=== PATIENT | female | born 1940 | race Caucasian/White ===

== ENCOUNTER 2023-08-25 17:32 | Emergency (ER) | payer MEDICARE, OTHER, SELFPAY ==
[2023-08-25 17:34] VITALS: BP 119/90
--- NOTE | 2023-08-25 18:20 | ED.GENMED ---
History of Present Illness
General
Chief Complaint: Breathing Problem
Source: patient and family
Exam Limitations: none
Time Seen by Provider: 08/25/23 18:18
Nursing documentation reviewed up to this point in time: agreed with
History of Present Illness
History of Present Illness:
83-year-old female presents emergency room complaining of shortness of breath ongoing for 3 months, worse over the past several days.
Past History
Past History
ED Past Medical History: Asthma, CAD, GERD, HTN, Hypothyroidism and Other (Arthritis)
ED Past Surgical History: Cholecystectomy and Orthopedic
Social History
Tobacco: Former smoker
Personal:
Living: with family
Family History
Family History: CAD
Review of Systems
Review of Systems
Allergies reviewed?: Yes
All Other Systems: Not applicable
Constitutional: Reports no symptoms
EENT: Reports no symptoms
Respiratory: Reports cough and trouble breathing
Cardiac: Reports no symptoms
ABD/GI: Reports no symptoms
: Reports no symptoms
Musculoskeletal: Reports no symptoms
Skin: Reports no symptoms
Neurological: Reports no symptoms
Endocrine: Reports no symptoms
Hematologic/Lymphatic: Reports no symptoms
Psychiatric: Reports no symptoms
Phy Exam
Physical Exam
Physical Exam:
Physical Exam
General: no apparent distress, not acutely ill
Neck: supple. no meningeal signs. normal posterior pharynx
Heart: s1/s2 regular rate and rhythm, no murmur. equal radial
pulses.
HEENT: Pupils equal round reactive to light, EOMI
Lungs: no acute respiratory distress. Decreased breath sounds bilaterally
Abdomen: normal bowel sounds. not tender. no CVAT
Neuro: alert and oriented. no focal neurological deficits cranial nerves II through XII intact
Skin: no rash
Psychiatric: well kept. interactive and cooperative
Extremities: no edema. no calf tenderness. negative homans. good distal pulses
Scores
Heart Failure Risk
Heart Failure Risk Score: Not Applicable
Course
Orders/Labs/Results
Orders:
Orders
08/25/23 17:38
ECG [Electrocardiogram (*1)] Urgent
Reason for Study: Bradycardia / Tachycardia
EKG- Treatment ONCE
08/25/23 18:08
Cardiac Monitoring- Treatment ONCE
IV Insert/Care/Rem.- Treatment PRN
CR Chest - 2 Views Urgent
Comment:
Reason For Exam: respiratory distress
O2 Therapy [RESP] Urgent
Titrate/Wean O2 to maintain O2 sat greater than (%): 93
Special Instructions: TO MAINTAIN CONTINUOUS O2 SATS >/= 93%
Pulse Ox/cont/shift [RESP] Urgent
Quantity: 1
Special Instructions: continuous pulse ox
08/25/23 18:16
Complete Blood Count/With Diff Urgent
Comprehensive Metabolic Panel Urgent
NT-proBNP Urgent
Troponin I Urgent
08/25/23 19:09
Ipratropium/Albuterol Sulfate [Duoneb] 3 ml INH R NOW STA
08/25/23 21:42
Dexamethasone Sod Phosphate [Decadron] 10 mg IV NOW STA
Ipratropium/Albuterol Sulfate [Duoneb] 3 ml INH R NOW STA
Abnormal Lab Results
08/25/23
18:16
RBC 4.02 L 10^6/uL
(4.20-5.40)
Hgb 11.4 L g/dL
(12.0-16.0)
Hct 34.1 L %
(37.0-47.0)
MPV 11.3 H fL
(7.4-10.4)
BUN 27 H mg/dl
(7-17)
Creatinine 1.1 H mg/dL
(0.6-1.0)
AST 52 H U/L
(14-36)
ALT 46 H U/L
(0-35)
08/25/23 18:16
08/25/23 18:16
Vital Signs
Initial and Last Documented VS:
Initial Vital Signs
Temp Pulse Resp BP Pulse Ox
97.6 F 45 24 119/90 93
08/25/23 17:34 08/25/23 17:34 08/25/23 17:34 08/25/23 17:34 08/25/23 17:34
Last Documented Vital Signs
Temp Pulse Resp BP Pulse Ox
97.6 F 65 13 155/89 96
08/25/23 17:34 08/25/23 21:45 08/25/23 21:45 08/25/23 20:00 08/25/23 21:45
MDM/Problems Addressed
Differential Diagnosis Includes:
Pneumonia, asthma exacerbation, CHF
MDM/Problems Addressed:
83-year-old female with asthma exacerbation. Do not suspect PE or pneumonia. Improved after DuoNeb's and Decadron. Discharged to follow-up with pulmonology. Return precautions given.
Chronic conditions affecting care: Asthma and Cancer
Acute Exacerbation and/or Progression of Chronic Illness: Asthma and Cancer
*Radiology
Radiology exam reviewed: preliminary read by ED provider (Chest x-ray no acute findings)
*Pulse Oximetry
Patient hypoxic: no
*EKG
Interpreted by ED Provider?: Yes
EKG Intrepretation Date: 08/25/23
EKG Intrepretation Time: 17:42
Interpretation: abnormal
Comparison EKG: changes noted
Heart Rate: 62
Rate: normal
Rhythm: sinus, PAC's and PVC's
[place]: normal axis
Interval: normal interval
QRS Pattern: normal QRS
Ischemia: non-specific ST changes
*Airplane Designer Interpretation
Rate: normal
Interpretation: abnormal
Heart Rate: 60
Rhythm: sinus and PVC's
*Critical Care Note
Total Time (30-74mins, 75-104mins- exclusive of procedures): Not Applicable
Data Reviewed
Further Testing Considered But Not Given:
ct chest not indicated
Patient Management
Social determinants of health affecting care: Living situation
Escalation/DeEscalation of care consider admission/obs:
admit not indicated
ED Attending Note
-
Portions of this chart may have been created with voice recognition software.� Occasional wrong word or��sound alike� substitutions may have occurred due to the inherent limitations of voice recognition software.
Discharge Plan
Departure
Patient Disposition: Home (Routine Discharge)
Date of Disposition: 08/25/23
Time of Disposition: 22:36
Patient with high blood pressure during this ER visit?: Yes
Condition: Good
Discharge Problem:
Asthma exacerbation
Instructions: Asthma, Adult (DC), BLOOD PRESSURE
Prescriptions:
New
prednisone 50 mg tablet
50 mg PO DAILY Qty: 5 0RF
No Action
amlodipine 5 MG tablet
5 mg PO DAILY Qty: 1 0RF
Rx Instructions:
hold sbp <135
Albuterol Sulfate Hfa
1 puff inhalation PRN PRN (Reason: SOB)
levothyroxine 112 MCG tablet
112 mcg PO DAILY
carvedilol [Coreg] 25 MG tablet
25 mg PO BID
Saccharomyces boulardii 250 MG capsule
250 mg PO DAILY
quinapril [Accupril] 20 MG tablet
20 mg PO DAILY
nabumetone 500 MG tablet
500 mg PO BID
hydrochlorothiazide 12.5 MG tablet
12.5 mg PO DAILY
evolocumab [Repatha Syringe] 140 MG/ML syringe
140 mg SQ [id number]
mupirocin 1 APPLIC ointment
1 applic topical BID Qty: 1 0RF
Patient Comments:
last dose 12/27 bid since monday 12/25
sennosides [senna] 1 TABLET tablet
2 tab PO BID 0RF
aspirin 325 MG tablet
325 mg PO DAILY 0RF
magnesium hydroxide 30 ML suspension
30 ml PO DAILYPRN PRN (Reason: constipation) 0RF
docusate sodium 100 MG capsule
100 mg PO BID 0RF
tramadol 50 MG tablet
50 mg PO Q6HPRN PRN (Reason: moderate-severe pain) Qty: 30 0RF
Rx Instructions:
Dx joint replacement
ongoing therapy
acetaminophen [Tylenol Extra Strength] 500 MG tablet
1,000 mg PO QID Qty: 0 0RF
Referrals:
Cori Chua DO [Family Provider] -
Interventions
Interventions:
ED- Cardiac Assessment Last Done: 08/25/23 18:45
ED- Pulmonary Assessment Last Done: 08/25/23 18:45
Discharge Date and Time
Print Language: GEORGIAN
[2023-08-25 18:32] LABS: % Eosinophils 3.5 % (0-6); % Immature Granulocytes 0.2 % (0-0.5); % Lymphocytes 23.6 % (20.5-51.1); % Monocytes 6.9 % (1.7-9.3); % Neutrophils 64.8 % (42.2-75.2); Absolute Basophils 0.1 10^3/uL (0-0.2); Absolute Eosinophils 0.2 10^3/uL (0-0.7); Absolute Lymphocytes 1.5 10^3/uL (1.2-3.4); Absolute Monocytes 0.4 10^3/uL (0.1-0.6); Absolute Neutrophils 4.1 10^3/uL (1.4-6.5); Hematocrit 34.1 % (37.0-47.0); Hemoglobin 11.4 g/dL (12.0-16.0); Mean Corp Hgb Conc. 33.4 g/dL (33.0-37.0); Mean Corpuscular Hgb 28.4 pg (27.0-31.0); Mean Corpuscular Volume 84.8 fL (81.0-99.0); Mean Platelet Volume 11.3 fL (7.4-10.4); Nucleated Red Blood Cells % 0 %; Platelet Count 167 10^3/uL (130-400); Red Blood Cell Count 4.02 10^6/uL (4.20-5.40); Red Cell Dist. Width 13.4 % (11.5-14.5); White Blood Cell Count 6.3 10^3/uL (4.8-10.8)
[2023-08-25 18:45] VITALS: BP 156/71
[2023-08-25 18:49] LABS: ALT (SGPT) 46 U/L (0-35); AST (SGOT) 52 U/L (14-36); Albumin 3.8 g/dl (3.5-5.0); Alkaline Phosphatase 61 U/L (38-126); Blood Urea Nitrogen 27 mg/dl (7-17); Calcium 9.3 mg/dl (8.4-10.2); Carbon Dioxide 28 mmol/L (22-30); Chloride 100 mmol/L (98-107); Glucose 94 mg/dl (70-99); Potassium 4.2 mmol/L (3.5-5.1); Sodium 136 mmol/L (135-145); Total Bilirubin 0.5 mg/dl (0.2-1.3); Total Protein 6.3 g/dl (6.3-8.2); eGFR 50.48
[2023-08-25 18:55] LABS: NT-proBNP 1850 pg/ml; Troponin I < 0.012 ng/ml
[2023-08-25 19:00] VITALS: BP 147/61
[2023-08-25] MEDS: DUONEB 3 ML INH ×2 (19:27→21:56)
[2023-08-25 20:00] VITALS: BP 155/89
[2023-08-25] MEDS: DECADRON 10 MG IV (21:56)
== END 2023-08-25 23:06 | disposition home or self-care (01) ==
LOC: EMR 17:32
PROVIDERS: EMERGENCY PHYSICIAN Emergency Medicine; FAMILY PHYSICIAN Family Medicine
DX: J45.901 Unspecified asthma with (acute) exacerbation (principal); I10 Essential (primary) hypertension; Z87.891 Personal history of nicotine dependence
CPT/HCPCS: 99285; 96374; 94640; 71046; 80053; 83880; 84484; 85025; 93005

== ENCOUNTER → 2023-09-10 11:07 | Outpatient (REF) | payer MEDICARE, OTHER, SELFPAY ==
[2023-09-10 15:44] LABS: ALT (SGPT) 39 U/L (0-35); AST (SGOT) 21 U/L (14-36); Albumin 3.6 g/dl (3.5-5.0); Alkaline Phosphatase 54 U/L (38-126); Blood Urea Nitrogen 30 mg/dl (7-17); Calcium 9.5 mg/dl (8.4-10.2); Carbon Dioxide 31 mmol/L (22-30); Chloride 100 mmol/L (98-107); Glucose 99 mg/dl (70-99); Potassium 4.3 mmol/L (3.5-5.1); Sodium 137 mmol/L (135-145); Total Bilirubin 0.9 mg/dl (0.2-1.3); Total Protein 5.8 g/dl (6.3-8.2); eGFR 45.48
== END ==
LOC: HWRAD 11:07
PROVIDERS: ATTENDING PHYSICIAN Hospitalist; FAMILY PHYSICIAN Family Medicine
DX: M81.0 Age-related osteoporosis without current pathological fracture (principal); M15.9 Polyosteoarthritis, unspecified
CPT/HCPCS: 36415; 77080; 77081; 80053

== ENCOUNTER 2023-10-03 14:50 | Inpatient (IN) | payer MEDICARE, OTHER, SELFPAY ==
[2023-10-03] VITALS (10 sets, daily range): BP systolic 151–193; BP diastolic 67–109; BMI 36.2; BMI 35.4
[2023-10-03 10:12] LABS: % Basophils 0.8 % (0-2); % Eosinophils 0.4 % (0-6); % Immature Granulocytes 0.4 % (0-0.5); % Lymphocytes 22.1 % (20.5-51.1); % Monocytes 7.9 % (1.7-9.3); % Neutrophils 68.4 % (42.2-75.2); Absolute Basophils 0.1 10^3/uL (0-0.2); Absolute Lymphocytes 1.6 10^3/uL (1.2-3.4); Absolute Monocytes 0.6 10^3/uL (0.1-0.6); Absolute Neutrophils 5.1 10^3/uL (1.4-6.5); Hematocrit 36.3 % (37.0-47.0); Hemoglobin 12.1 g/dL (12.0-16.0); Mean Corp Hgb Conc. 33.3 g/dL (33.0-37.0); Mean Corpuscular Hgb 27.7 pg (27.0-31.0); Mean Corpuscular Volume 83.1 fL (81.0-99.0); Mean Platelet Volume 10.6 fL (7.4-10.4); Nucleated Red Blood Cells % 0 %; Platelet Count 171 10^3/uL (130-400); Red Blood Cell Count 4.37 10^6/uL (4.20-5.40); Red Cell Dist. Width 14.6 % (11.5-14.5); White Blood Cell Count 7.4 10^3/uL (4.8-10.8)
[2023-10-03 10:23] LABS: INR 1.37
[2023-10-03 10:24] LABS: APTT 41.2 Sec (23.4-35.0)
[2023-10-03 10:28] LABS: ALT (SGPT) 18 U/L (0-35); AST (SGOT) 18 U/L (14-36); Alkaline Phosphatase 61 U/L (38-126); Blood Urea Nitrogen 32 mg/dl (7-17); Calcium 9.5 mg/dl (8.4-10.2); Carbon Dioxide 26 mmol/L (22-30); Chloride 104 mmol/L (98-107); Estimated Creatinine Clearance 41 ml/min; Glucose 117 mg/dl (70-99); Potassium 4.3 mmol/L (3.5-5.1); Sodium 137 mmol/L (135-145); Total Bilirubin 0.7 mg/dl (0.2-1.3); Total Protein 6.1 g/dl (6.3-8.2); eGFR 45.48
--- NOTE | 2023-10-03 10:29 | ED.GENMED ---
History of Present Illness
<Anny Mcdonough PA-C - Last Filed: 10/03/23 18:17>
General
Chief Complaint: Rectal Bleeding
Source: patient
Exam Limitations: none
Time Seen by Provider: 10/03/23 10:26
Nursing documentation reviewed up to this point in time: agreed with
History of Present Illness
History of Present Illness:
Patient is an 83-year-old female with history atrial fibrillation on Eliquis, lung CA s/p resection, hypertension, hyperlipidemia presenting to the emergency department via EMS with concerns of rectal bleeding. Patient states that this morning when
she woke up around 730 she had the feeling that she had to have a bowel movement. She went to the bathroom and felt like she was having some diarrhea. When she looked in the toilet bowl it was all bright red blood. She had a repeat episode about
5 minutes after the initial episode. Patient denies any associated rectal pain, abdominal pain, nausea, or vomiting. Patient denies any fevers, chills, chest pain, shortness of breath, dizziness/lightheadedness. Patient denies any hematuria,
abnormal vaginal bleeding.
Patient reports that she did have a normal bowel movement yesterday morning
Patient has been on Eliquis for atrial fibrillation that she takes twice a day. She did take her dose last night but held her dose this morning.
Patient states that she has had a few colonoscopies in the past�most recent being about 5 years ago. No history of any abnormal colonoscopies.
Past History
<Anny Mcdonough PA-C - Last Filed: 10/03/23 18:17>
Past History
ED Past Medical History: Asthma, CAD, GERD, HTN, Hypothyroidism and Other (Arthritis)
ED Past Surgical History: Cholecystectomy and Orthopedic
Social History
Tobacco: Former smoker
Personal:
Living: with family
Family History
Family History: CAD
Review of Systems
<Anny Mcdonough PA-C - Last Filed: 10/03/23 18:17>
Review of Systems
Allergies reviewed?: Yes
All Other Systems: ROS reviewed and negative except as documented in HPI and ROS
Phy Exam
<Anny Mcdonough PA-C - Last Filed: 10/03/23 18:17>
Physical Exam
Physical Exam:
Vitals: Hypertensive, otherwise vital signs stable
General: Patient is well appearing, no acute distress
Skin: Warm and dry, no rashes or lesions
Head: Normocephalic, atraumatic
Eyes: Sclera nonicteric. EOMs intact. No nystagmus.
Throat: Protecting airway
Neck: Normal ROM, no cervical spine tenderness, no meningismus
Cardiac: Regular rate and rhythm, no murmurs.
Pulm: Normal respiratory effort, no wheezes, rales, rhonchi heard on exam.
Abdomen: Abdomen soft. No abdominal tenderness. No bruising. No CVA tenderness
Rectal: No stool in vault. Small amount of bright red blood. No visualized external hemorrhoids or fissures.
Extremities: No evidence of cyanosis or edema. Great distal pulses.
Neuro: AAOx3. CN II-XII intact. No focal neurologic deficits.
Psychiatric: Normal affect.
Course
<Anny Mcdonough PA-C - Last Filed: 10/03/23 18:17>
Orders/Labs/Results
Orders:
Orders
10/03/23 09:54
IV Insert/Care/Rem.- Treatment PRN
10/03/23 10:00
Type+Screen Urgent
Complete Blood Count/With Diff Urgent
Comprehensive Metabolic Panel Urgent
PTT Urgent
Prothrombin Time Urgent
10/03/23 10:53
Electrocardiogram (*1) Urgent
Reason for Study: Atrial Fibrillation
EKG- Treatment ONCE
0.9% Sodium Chloride 1000 ml [Nss] 1,000 ml IV BOLUS
10/03/23 14:13
Admit/Transfer Patient As Directed
Co-Sign Provider:
Level of Care: Inpatient admission
Assign to:: Telemetry
Physician / Group: Stanley
Diagnosis: Rectal bleeding
Reason for Telemetry: Other
Other Reason for Telemetry: Afib
Date to Stop Telemetry: 10/05/23
Time to Stop Telemetry: 11:00
Reason for Hospitalization: Above
Expected length of stay greater than two midnights?: Yes
ELOS- Estimated Length of Stay in days: 2
I certify the patient meets the requirements for IP care: Yes
PRN Pain Medication Management As Directed
May give lesser potent ordered pain med per pt: Yes
preference::
Protocol:: Medication orders for pain may be administered in a
manner that supports deferring to patient preference
when the pt is:
-Requesting an ordered lesser potent pain medication.
Least to most potent pain medications are defined as:
acetaminophen < NSAID < tramadol < opioids (morphine,
oxycodone, hydromorphone).
- Requesting a lesser dose of the same medication IF
ORDERED.
- Requesting a less intrusive route of administration
if both routes are prescribed by the provider (PO <
IV).
10/03/23 14:16
Code Status As Directed
Resuscitation Status: Full Code
10/03/23 Dinner
Clear Liquid
At Your Request: Full Participation
Does patient need a safe tray?: No
10/03/23 16:03
Acetaminophen [Tylenol] 650 mg PO Q4HPRN PRN
Albuterol Nebs [Ventolin Nebules] 2.5 mg INH R Q4HPRN PRN
Albuterol [ProAIR HFA INHALER] 2 puff INH R Q6HPRN PRN
10/03/23 16:03
GASTROINTESTINAL CONSULT Routine
Consulting Provider: Rosa Azul
Was physician already notified: Yes
Sequential Compression Device [Pneumatic Compression Sleeves] As Directed
Type: Knee high
DX Deep Vein Thrombosis Video Routine
10/03/23 16:41
Hemoglobin Q8H
10/03/23 20:00
Carvedilol [Coreg] 25 mg PO BID
cycloSPORINE [Restasis 0.05% Ophthalmic Emulsion] 1 drops BOTH EYES Q12
10/04/23 00:03
Hemoglobin Q8H
10/04/23 06:00
BMP [Basic Metabolic Panel] IN AM
CBC/With Diff [Complete Blood Count/With Diff] IN AM
Levothyroxine [Synthroid] 112 mcg PO DAILY @ 0600
10/04/23 08:00
Lisinopril [Zestril] 20 mg PO DAILY
10/04/23 08:03
Hemoglobin Q8H
10/05/23 11:00
DC Protocol for Telemetry ONCE
Abnormal Lab Results
10/03/23
10:00
Hct 36.3 L %
(37.0-47.0)
RDW 14.6 H %
(11.5-14.5)
MPV 10.6 H fL
(7.4-10.4)
PT 17.0 H Sec
(11.4-14.6)
APTT 41.2 H Sec
(23.4-35.0)
BUN 32 H mg/dl
(7-17)
Creatinine 1.2 H mg/dL
(0.6-1.0)
Glucose 117 H mg/dl
(70-99)
Total Protein 6.1 L g/dl
(6.3-8.2)
10/03/23 10:00
10/03/23 10:00
Vital Signs
Initial and Last Documented VS:
Initial Vital Signs
Temp Pulse Resp BP Pulse Ox
97.9 F 74 18 161/67 95
10/03/23 09:48 10/03/23 09:48 10/03/23 09:48 10/03/23 09:48 10/03/23 09:48
Last Documented Vital Signs
Temp Pulse Resp BP Pulse Ox
97.6 F 74 16 169/100 94
10/03/23 16:13 10/03/23 17:03 10/03/23 17:03 10/03/23 16:13 10/03/23 17:03
<Prateek Harp DO - Last Filed: 10/03/23 12:41>
Orders/Labs/Results
Orders:
Orders
10/03/23 09:54
IV Insert/Care/Rem.- Treatment PRN
10/03/23 10:00
Type+Screen Urgent
Complete Blood Count/With Diff Urgent
Comprehensive Metabolic Panel Urgent
PTT Urgent
Prothrombin Time Urgent
10/03/23 10:53
Electrocardiogram (*1) Urgent
Reason for Study: Atrial Fibrillation
EKG- Treatment ONCE
0.9% Sodium Chloride 1000 ml [Nss] 1,000 ml IV BOLUS
10/03/23 14:13
Admit/Transfer Patient As Directed
Co-Sign Provider:
Level of Care: Inpatient admission
Assign to:: Telemetry
Physician / Group: Stanley
Diagnosis: Rectal bleeding
Reason for Telemetry: Other
Other Reason for Telemetry: Afib
Date to Stop Telemetry: 10/05/23
Time to Stop Telemetry: 11:00
Reason for Hospitalization: Above
Expected length of stay greater than two midnights?: Yes
ELOS- Estimated Length of Stay in days: 2
I certify the patient meets the requirements for IP care: Yes
PRN Pain Medication Management As Directed
May give lesser potent ordered pain med per pt: Yes
preference::
Protocol:: Medication orders for pain may be administered in a
manner that supports deferring to patient preference
when the pt is:
-Requesting an ordered lesser potent pain medication.
Least to most potent pain medications are defined as:
acetaminophen < NSAID < tramadol < opioids (morphine,
oxycodone, hydromorphone).
- Requesting a lesser dose of the same medication IF
ORDERED.
- Requesting a less intrusive route of administration
if both routes are prescribed by the provider (PO <
IV).
10/03/23 14:16
Code Status As Directed
Resuscitation Status: Full Code
10/03/23 Dinner
Clear Liquid
At Your Request: Full Participation
Does patient need a safe tray?: No
10/03/23 16:03
Acetaminophen [Tylenol] 650 mg PO Q4HPRN PRN
Albuterol Nebs [Ventolin Nebules] 2.5 mg INH R Q4HPRN PRN
Albuterol [ProAIR HFA INHALER] 2 puff INH R Q6HPRN PRN
10/03/23 16:03
GASTROINTESTINAL CONSULT Routine
Consulting Provider: Rosa Azul
Was physician already notified: Yes
Sequential Compression Device [Pneumatic Compression Sleeves] As Directed
Type: Knee high
DX Deep Vein Thrombosis Video Routine
10/03/23 16:41
Hemoglobin Q8H
10/03/23 20:00
Carvedilol [Coreg] 25 mg PO BID
cycloSPORINE [Restasis 0.05% Ophthalmic Emulsion] 1 drops BOTH EYES Q12
10/04/23 00:03
Hemoglobin Q8H
10/04/23 06:00
BMP [Basic Metabolic Panel] IN AM
CBC/With Diff [Complete Blood Count/With Diff] IN AM
Levothyroxine [Synthroid] 112 mcg PO DAILY @ 0600
10/04/23 08:00
Lisinopril [Zestril] 20 mg PO DAILY
10/04/23 08:03
Hemoglobin Q8H
10/05/23 11:00
DC Protocol for Telemetry ONCE
Abnormal Lab Results
10/03/23
10:00
Hct 36.3 L %
(37.0-47.0)
RDW 14.6 H %
(11.5-14.5)
MPV 10.6 H fL
(7.4-10.4)
PT 17.0 H Sec
(11.4-14.6)
APTT 41.2 H Sec
(23.4-35.0)
BUN 32 H mg/dl
(7-17)
Creatinine 1.2 H mg/dL
(0.6-1.0)
Glucose 117 H mg/dl
(70-99)
Total Protein 6.1 L g/dl
(6.3-8.2)
10/03/23 10:00
10/03/23 10:00
Vital Signs
Initial and Last Documented VS:
Initial Vital Signs
Temp Pulse Resp BP Pulse Ox
97.9 F 74 18 161/67 95
10/03/23 09:48 10/03/23 09:48 10/03/23 09:48 10/03/23 09:48 10/03/23 09:48
Last Documented Vital Signs
Temp Pulse Resp BP Pulse Ox
97.6 F 74 16 169/100 94
10/03/23 16:13 10/03/23 17:03 10/03/23 17:03 10/03/23 16:13 10/03/23 17:03
<Anny Mcdonough PA-C - Last Filed: 10/03/23 18:17>
MDM/Problems Addressed
Differential Diagnosis Includes:
Not limited to: Diverticular bleed, internal hemorrhoid, external hemorrhoid, anal fissure, malignancy,
MDM/Problems Addressed:
83-year-old female with history atrial fibrillation on Eliquis, lung cancer status postresection presenting to the emergency department with 2 episodes of bright red blood per rectum this morning. No associated lightheadedness, dizziness, chest
pain, shortness of breath. No hematochezia, hematuria. Mildly hypertensive on arrival, otherwise vital signs stable. Physical exam as above. Patient well-appearing, in no apparent distress abdomen is soft and nontender. Rectal exam shows no
evidence of external hemorrhoid or fissure although there is small amount of jose red blood in vault. Heart regular rate and rhythm. Lungs clear bilaterally. No focal neurologic deficits. Patient perfusing well. No rash. Labs initiated in
triage. Hemoglobin stable at 12. Mild evidence of renal insufficiency on labs�will replete with a liter of fluids in emergency department.
Although patient is hemodynamically stable, given patient is currently anticoagulated on Eliquis with no clear source of rectal bleeding�will admit to hospitalist for further observation/management. Discussed case with hospitalist�accepted to
hospitalist service. Patient seen by attending physician.
Chronic conditions affecting care:
Atrial fibrillation on Eliquis, hypertension
Acute Exacerbation and/or Progression of Chronic Illness:
Acutely hypertensive
<Anny Mcdonough PA-C - Last Filed: 10/03/23 18:17>
*Pulse Oximetry
Patient hypoxic: no
*EKG
Interpreted by ED Provider?: Yes
EKG Intrepretation Date: 10/03/23
Interpretation: abnormal
Comparison EKG: changes noted
Heart Rate: 77
Rate: normal
Rhythm: a-fib
[place]: normal axis
Interval: normal interval
Ischemia: non-specific ST changes
*Attenuator Interpretation
Rate: normal
Interpretation: abnormal
Heart Rate: 75
Rhythm: a-fib
*Critical Care Note
Total Time (30-74mins, 75-104mins- exclusive of procedures): Not Applicable
<Anny Mcdonough PA-C - Last Filed: 10/03/23 18:17>
Patient Management
Discussion with other providers: Hospitalist
ED Attending Note
<Anny Mcdonough PA-C - Last Filed: 10/03/23 18:17>
-
Portions of this chart may have been created with voice recognition software.� Occasional wrong word or��sound alike� substitutions may have occurred due to the inherent limitations of voice recognition software.
<Prateek Harp DO - Last Filed: 10/03/23 12:41>
ED Attending Note
Patient seen and examined by attending physician: Yes
I performed the substantive portion of visit, reviewed & personally made and approve the management plan that is documented in note by myself or ALEXANDRA.: Yes
ED Attending Note:
83-year-old female who presents with rectal bleeding. She is on Eliquis. She did hold it today. The patient states that she had 2 episodes of rectal bleeding. She states she feels better now. Denies chest pain or shortness of breath. No
abdominal pain. No back pain. Exam: Awake and alert, no abdominal distention. Assessment and plan: Patient appears well but given Eliquis and rectal bleeding and given her age, admit for close monitoring and reassessment of her hemoglobin. Also
question whether she should restart her Eliquis in light of her chronic A-fib
Discharge Plan
Departure
Patient Disposition: Admit
Date of Disposition: 10/03/23
Time of Disposition: 11:33
Presentation/result/management discussed w/ accepting MD/DO: Hospitalist
Discharge Problem:
Rectal bleeding
Interventions
Interventions:
*Risk Screen - Suicide Last Done: 10/03/23 09:50
*General Assessment Last Done: 10/03/23 09:50
*Neglect/Abuse Screening Last Done: 10/03/23 09:50
ED- Fall Risk Assessment Last Done: 10/03/23 09:50
*ED COVID-19 Vaccine History Last Done: 10/03/23 09:50
*Nursing Disposition Last Done: 10/03/23 16:08
CZ-[id number]-Ubyfrroxvd Assessment Last Done: 10/03/23 09:50
ED- Cardiac Assessment Last Done: 10/03/23 09:53
ED- Pulmonary Assessment Last Done: 10/03/23 09:51
Discharge Date and Time
Discharge Date/Time: 10/03/23 16:00
[2023-10-03] MEDS: NSS 1000 IV (11:22)
--- NOTE | 2023-10-03 14:21 | HPS.HSE ---
Family Physician
-
Family Physician: DENNY Null
Chief Complaint
-
Rectal bleeding
History of Present Illness
Patient is 83 years old female with stage I lung CA (non-small cell), underwent left lower lobectomy at [facility] 5 months ago, where they found postoperative atrial fibrillation, and patient was initiated on anticoagulation with Eliquis. Patient
presents today with acute onset of rectal bleeding. She describes 2 episodes of passing bright red blood per rectum. She denies any abdominal pain, fever, nausea or vomiting. She was in her normal state of health day prior with normal pattern and
regular bowel movement. She denies any syncope or chest pain. Given all above, patient did not take her morning dose of Eliquis.
Presented to the emergency room patient remains hemodynamically stable with no new episodes of rectal bleeding.
Medical History
Past Medical History
Past Medical History: Reports Arrhythmia (Paroxysmal atrial fibrillation), CAD, HTN, Hypercholesterolemia, Hypothyroidism, IDDM and Other (Lungs CA); Denies NIDDM
Past Surgical History: Reports Orthopedic and Other (Left lower lobectomy for lung CA)
Social History
Tobacco: Non-smoker
Alcohol: None
Drug: None
Living: With Family
Employment: Retired
Family History
Family History: Not pertinent
Allergies / Home Medications
Allergies reflects when Allergies were last updated in [employer]
Home Medications with original date entered in [employer]
Allergy/Medication List:
Allergies
Allergy/AdvReac Type Severity Reaction Status Date / Time
amoxicillin Allergy 'YEAST Verified 10/03/23 09:49
INFECTION'
adhesive AdvReac Rash/bliste Verified 10/03/23 09:49
rs
oxycodone AdvReac Itching Verified 10/03/23 09:49
Home Medications
carvedilol 25 mg tablet (Coreg) 25 mg PO BID Heart Failure 12/05/19
evolocumab 140 mg/mL subcutaneous syringe (Repatha Syringe) 140 mg SQ Q2W High cholesterol 12/05/19
levothyroxine 112 mcg tablet 112 mcg PO DAILY Thyroid 12/05/19
Lactobac no.2-Bifidobac no.1-S. thermo 112.5 billion cell capsule (Visbiome) 1 cap PO DAILY Gastrointestinal Issue 10/03/23
acetaminophen 325 mg tablet (Tylenol) 650 mg PO Q4HPRN PRN mild pain 10/03/23
albuterol sulfate 2.5 mg/3 mL (0.083 %) solution for nebulization 2.5 mg inhalation R Q4HPRN PRN sob 10/03/23
albuterol sulfate 90 mcg/actuation aerosol inhaler 2 puff inhalation R Q6HPRN PRN sob 10/03/23
apixaban 5 mg tablet (Eliquis) 5 mg PO BID Blood Clot Prevention/Tx 10/03/23
cyclosporine 0.05 % eye drops in a dropperette (Restasis) 1 drp BOTH EYES Q12H Eye Condition 10/03/23
denosumab 60 mg/mL subcutaneous syringe (Prolia) 60 mg SC [id number] BONE HEALTH 10/03/23
lisinopril 20 mg-hydrochlorothiazide 12.5 mg tablet 1 tab PO DAILY Blood Pressure 10/03/23
Review of Systems
-
A 12 point ROS was completed and negative except as noted: Yes
Abdomen/GI: Reports See HPI
Physical Exam
Vital Signs
Vital Signs
Temp Pulse Resp BP Pulse Ox
97.9 F 74 33 172/78 95
10/03/23 09:48 10/03/23 12:30 10/03/23 12:30 10/03/23 12:00 10/03/23 12:30
Physical Exam
General: Well Developed, Well Nourished and No Apparent Distress
HEENT: NormoCephalic, Moist mucous membranes and Atraumatic
Respiratory: Clear
Cardiac: S1/S2 and Regular Rhythm; No Murmur or Rub
GI: Soft, Non Tender, Non Distended and Normal Bowel Sounds; No Organomegaly
Rectal: Deferred by Provider
Musculoskeletal: No Clubbing, No Cyanosis and No Edema
Skin: No Rash
Neuro: Awake, Alert, Oriented, AO x 3 and Nonfocal/grossly intact
Laboratory Results
-
10/03/23 10:00
10/03/23 10:00
Laboratory Results
PT 17.0 Sec (11.4-14.6) H 10/03/23 10:00
INR 1.37 10/03/23 10:00
APTT 41.2 Sec (23.4-35.0) H 10/03/23 10:00
Total Bilirubin 0.7 mg/dl (0.2-1.3) 10/03/23 10:00
AST 18 U/L (14-36) 10/03/23 10:00
ALT 18 U/L (0-35) 10/03/23 10:00
Alkaline Phosphatase 61 U/L (38-126) 10/03/23 10:00
Data Reviewed
-
Lab Data: Labs Reviewed by me
Impression/Plan
-
IMPRESSION:
Presentation with acute onset of rectal bleeding.
Acute gastrointestinal hemorrhage most likely lower GI source secondary to anticoagulation with Eliquis.
Conditions prior to admission:
Paroxysmal atrial fibrillation (postoperatively diagnosed after left lower lobe resection for non-small cell lung carcinoma)
Anticoagulation with Eliquis
Non-small cell lung carcinoma stage I status post left lower lobectomy 5 months ago at [facility].
Nonobstructive CAD
Hypertension.
Dyslipidemia.
Obesity with BMI of 36.
Hypothyroidism on replacement
GERD
Asthma without exacerbation.
History of right total knee arthroplasty with revision.
PLAN:
Rectal bleeding secondary to anticoagulation with Eliquis
Hemodynamically stable
Hemoglobin 12 upon presentation with no further bleeding while in the emergency room
Differential diagnosis diverticular versus polyp versus mass, versus other.
Clinically less likely upper GI source.
Last colonoscopy 2016 with polyps.
Hold Eliquis. Last dose 10/01 p.m.
No evidence of life-threatening hemorrhage upon presentation, no clinical indication for reversal agents.
Monitor serial hemoglobin.
Type and screen.
Patient signed consent for transfusion
If further bleeding consider CTA
GI consultation
Depends on clinical development, will consider endoscopic evaluation prior to reinstatement of anticoagulation.
Paroxysmal atrial fibrillation perioperatively diagnosed after left lower lobe resection for lung carcinoma.
Rate controlled.
Continue Coreg.
Hold anticoagulation as above.
CAD, nonobstructive
Hypertension
Continue Coreg
Continue lisinopril/HCTZ baseline noted creatinine 1.2 possibly baseline, if further rise, consider adjustment of antihypertensive regimen accordingly
--- NOTE | 2023-10-03 14:40 | CON.GI ---
Addendum entered and electronically signed by Rosa Azul MD 10/03/23 17:23:
I saw and examined the patient.
The PIN DRAFTING MACHINE OPERATOR's note was reviewed and I agree with the note.
Comment: This is a very pleasant 83-year-old female with past medical history as listed below including non small cell lung CA status post LL lobectomy 5 months ago at [facility], postoperative atrial fibrillation on Eliquis, hypertension, hyperlipidemia,
hypothyroidism who was in her usual state of health up until earlier today when she had a bowel movement with bright red blood in the stool 2 episodes. She says there was a large amount of blood in the bowl which prompted her to come into the
emergency room. She denies any abdominal pain no dizziness or syncope. Her last colonoscopy was in [address] Harper and she had colon polyps and diverticulosis. No prior history of lower GI bleed or diverticulitis and no further bleeding since
then.
Assessment and plan painless lower GI bleed most likely from diverticulosis since it was a large amount less likely hemorrhoidal bleed. Less likely ischemic colitis or infectious colitis. Hemoglobin remained stable will continue to trend. Eliquis
has been held hopefully the bleeding will spontaneously resolve being off of anticoagulation. If she continues to have further brisk bleeding then will need a CT angiogram. If no further bleeding possible DC tomorrow. Okay for clear liquid diet
tonight.
Original Note:
Consultation
-
Date/Time Consultation Requested: 10/03/23 1415
Date/Time Consultation Performed: 10/03/23 1440
Requesting Provider: Ronn Angel MD
Performing Provider: DENNY Vargas, Rosa azul MD
Reason for Consultation: rectal bleeding
Medical History
Chief Complaint / HPI
Chief Complaint: Rectal blood
History of Present Illness:
Pt is a 83yo presents with hx lung CA- small cell with prior lobectomy 5 months ago with lobectomy, afib noted post-op, CAD, HTN, hypercholesterolemia, hypothyroidism, IDDM with onset of rectal bleeding. Hx colonoscopy 2016 with diverticulosis,
diminutive polyp in sigmoid colon. bx no adenoma benign HP polyps. Pt denies hx prior bleeding. Pt states bleeding was noted between 7:30 and 8:30 with 2 episode with red blood and dark clots in entire bowel. On admission hbg 12 with BUN 32 at
baseline. Pt admits to belching but denies dysphagia, GERD, nausea, vomiting, abdominal pain, diarrhea, constipation or black stools. No NSAID use.
Past Medical History
Past Medical History: Arrhythmias (PAF), Asthma, CAD, Cancer (lung CA small cell CA with lobectomy), GERD, HTN, Hypercholesterolemia, Hypothyroidism, IDDM and Other (obesity, colon polyps)
Past Surgical History: Orthopedic (right TKA with revision) and Other (lower lobe lobectomy )
Social History
Tobacco: Former Smoker
Alcohol: None
Drug: None
Living: Alone
Family History
Family History: Other (no family hx colon Ca or polyps)
Allergies / Home Medications
Allergy/AdvReac Type Severity Reaction Status Date / Time
amoxicillin Allergy 'YEAST Verified 10/03/23 09:49
INFECTION'
adhesive AdvReac Rash/bliste Verified 10/03/23 09:49
rs
oxycodone AdvReac Itching Verified 10/03/23 09:49
�Medication �Instructions �Recorded
carvedilol 25 mg tablet (Coreg) 25 mg PO BID Heart Failure 12/05/19
evolocumab 140 mg/mL subcutaneous 140 mg SQ Q2W High cholesterol 12/05/19
syringe (Repatha Syringe)
levothyroxine 112 mcg tablet 112 mcg PO DAILY Thyroid 12/05/19
Lactobac no.2-Bifidobac no.1-S. 1 cap PO DAILY Gastrointestinal 10/03/23
thermo 112.5 billion cell capsule Issue
(Visbiome)
acetaminophen 325 mg tablet 650 mg PO Q4HPRN PRN mild pain 10/03/23
(Tylenol)
albuterol sulfate 2.5 mg/3 mL 2.5 mg inhalation R Q4HPRN PRN sob 10/03/23
(0.083 %) solution for nebulization
albuterol sulfate 90 mcg/actuation 2 puff inhalation R Q6HPRN PRN sob 10/03/23
aerosol inhaler
apixaban 5 mg tablet (Eliquis) 5 mg PO BID Blood Clot 10/03/23
Prevention/Tx
cyclosporine 0.05 % eye drops in a 1 drp BOTH EYES Q12H Eye Condition 10/03/23
dropperette (Restasis)
denosumab 60 mg/mL subcutaneous 60 mg SC [id number] BONE HEALTH 10/03/23
syringe (Prolia)
lisinopril 20 1 tab PO DAILY Blood Pressure 10/03/23
mg-hydrochlorothiazide 12.5 mg
tablet
Review of Systems
-
History Source: Patient
Constitutional: Reports No Symptoms
EENT: Reports No Symptoms
Respiratory: Reports No Symptoms and Trouble Breathing (shortness of breath )
Cardiac: Reports No Symptoms
Abdomen/GI: Reports No Symptoms and Bloody Stools
: Reports No Symptoms
Musculoskeletal: Reports No Symptoms
Neurological: Reports No Symptoms
Endocrine: Reports No Symptoms
Hematologic/Lymphatic: Reports Bleeding
Vital Signs
Temp Pulse Resp BP Pulse Ox
97.9 F 77 31 193/109 94
10/03/23 09:48 10/03/23 14:30 10/03/23 13:15 10/03/23 14:00 10/03/23 14:30
Physical Exam
Exam
General: Well Developed, Well Nourished and No Apparent Distress
HEENT: Normocephalic and Anicteric
Respiratory: Clear
Cardiac: Regular Rhythm
GI: Soft, Non Tender and Non Distended
Rectal: Other (pt with picture of red stools )
Musculoskeletal: No Clubbing and No Cyanosis
Skin: Warm and Dry
Neuro: Awake, Alert and AO x 3
Psych: Calm
Results
WBC 7.4 10^3/uL (4.8-10.8) 10/03/23 10:00
Hgb 12.1 g/dL (12.0-16.0) 10/03/23 10:00
Hct 36.3 % (37.0-47.0) L 10/03/23 10:00
MCV 83.1 fL (81.0-99.0) 10/03/23 10:00
Plt Count 171 10^3/uL (130-400) 10/03/23 10:00
Absolute Neuts (auto) 5.1 10^3/uL (1.4-6.5) 10/03/23 10:00
PT 17.0 Sec (11.4-14.6) H 10/03/23 10:00
INR 1.37 10/03/23 10:00
APTT 41.2 Sec (23.4-35.0) H 10/03/23 10:00
Sodium 137 mmol/L (135-145) 10/03/23 10:00
Potassium 4.3 mmol/L (3.5-5.1) 10/03/23 10:00
Chloride 104 mmol/L (98-107) 10/03/23 10:00
Carbon Dioxide 26 mmol/L (22-30) 10/03/23 10:00
BUN 32 mg/dl (7-17) H 10/03/23 10:00
Creatinine 1.2 mg/dL (0.6-1.0) H 10/03/23 10:00
Calcium 9.5 mg/dl (8.4-10.2) 10/03/23 10:00
Total Bilirubin 0.7 mg/dl (0.2-1.3) 10/03/23 10:00
AST 18 U/L (14-36) 10/03/23 10:00
ALT 18 U/L (0-35) 10/03/23 10:00
Alkaline Phosphatase 61 U/L (38-126) 10/03/23 10:00
Diagnostic Image Results:
Prior GI Procedures:
Colonoscopy: [facility] 2015 with diverticulosis, diminutive polyp in sigmoid colon. bx no adenoma benign HP polyps.
Assessment / Plan
-
Pt is a 83yo presents with hx lung CA- small cell with prior lobectomy 5 months ago with lobectomy, afib noted post-op, CAD, HTN, hypercholesterolemia, hypothyroidism, IDDM with onset of rectal bleeding. Hx colonoscopy 2016 with diverticulosis,
diminutive polyp in sigmoid colon. bx no adenoma benign HP polyps. Pt denies hx prior bleeding. Pt states bleeding was noted between 7:30 and 8:30 with 2 episode with red blood and dark clots in entire bowel. On admission hbg 12 with BUN 32 at
baseline.
-rectal bleeding- new onset
-hx diverticulosis, benign polyps
-afib on Eliquis prior to admission
-creat 1.2 on admission
other medical problems:
-hx lung CA with lobectomy
-CAD
-HTN
-hypercholesterolemia
-hypothyroidism
-IDDM
PLAN:
etiology of rectal bleeding related to lower GI bleed with red color --diverticular bleeding, vs other
currently no bleeding since 8:30 am
trend hbg and stools
if increased bleeding consider CTA if creat allow
if persistent bleeding consider colonoscopy
vs if bleeding stops consider D/c tomorrow with OP follow up for colonoscopy
ok for clear diet
Eliquis hold
will follow
-
-
-
Thank you for consultation and allowing me to participate in the patient's care. Please call the communications administrator GI physician during the after hours with any questions or concerns.
--- NOTE | 2023-10-03 16:51 | PTCARENOTE ---
Patient received to 4 west awake alert oriented. No c/o pain . Oriented to room , Out of bed in chair with call granda in reach. Clear liquids maintained.
[2023-10-03] MEDS: COREG 25 MG PO (20:17)
[2023-10-03] MEDS: RESTASIS 0.05% OPHTHALMIC EMULSION 1 DROPS BOTH EYES (20:18)
[2023-10-03] MEDS: ProAIR HFA INHALER 2 PUFF INH (22:53)
[2023-10-04 00:07] VITALS: BP 164/71
[2023-10-04 03:40] VITALS: BP 159/78
[2023-10-04] MEDS: SYNTHROID 112 MCG PO (05:35)
[2023-10-04] MEDS: ZESTRIL 20 MG PO (07:38)
[2023-10-04] MEDS: COREG 25 MG PO (07:38)
[2023-10-04] MEDS: ORETIC 12.5 MG PO (07:38)
[2023-10-04] MEDS: RESTASIS 0.05% OPHTHALMIC EMULSION 1 DROPS BOTH EYES (07:38)
[2023-10-04 08:00] VITALS: BP 118/75
--- NOTE | 2023-10-04 08:03 | W.PN.GI.CBS2 ---
Addendum entered and electronically signed by DENNY Smith 10/04/23 08:36:
messsage sent to Gi office to arrange OP follow up with our office vs Dr. Harper if patient prefers
Original Note:
Today's Communication / Plan
-
low residue diet
Assessment / Plan
-
Pt is a 83yo presents with hx lung CA- small cell with prior lobectomy 5 months ago with lobectomy, afib noted post-op, CAD, HTN, hypercholesterolemia, hypothyroidism, IDDM with onset of rectal bleeding. Hx colonoscopy 2016 with diverticulosis,
diminutive polyp in sigmoid colon. bx no adenoma benign HP polyps. Pt denies hx prior bleeding. Pt states bleeding was noted between 7:30 and 8:30 with 2 episode with red blood and dark clots in entire bowel. On admission hbg 12 with BUN 32 at
baseline.
-rectal bleeding- new onset
-hx diverticulosis, benign polyps
-afib on Eliquis prior to admission
-creat 1.2 on admission
other medical problems:
-hx lung CA with lobectomy
-CAD
-HTN
-hypercholesterolemia
-hypothyroidism
-IDDM
PLAN:
etiology of rectal bleeding related to lower GI bleed with red color --diverticular bleeding, less likely hemorrhoidal bleed. Less likely ischemic colitis or infectious colitis
if increased/recurrent bleeding consider CTA if creat allow
Eliquis hold for another 3 days and restart if no further bleeding
will advance diet to low residue diet and DC home if no further bleeding today
-
Subjective
Subjective
Date of Service: October 04, 2023
No bowel movement since admission, no further rectal bleeding, hemoglobin from today pending, denies abdominal pain
Objective
Data Reviewed
Laboratory Data:
Laboratory Results
PT 17.0 Sec (11.4-14.6) H 10/03/23 10:00
INR 1.37 10/03/23 10:00
APTT 41.2 Sec (23.4-35.0) H 10/03/23 10:00
Total Bilirubin 0.7 mg/dl (0.2-1.3) 10/03/23 10:00
AST 18 U/L (14-36) 10/03/23 10:00
ALT 18 U/L (0-35) 10/03/23 10:00
Alkaline Phosphatase 61 U/L (38-126) 10/03/23 10:00
Vital Signs and I&O:
Vital Signs
Temp Pulse Resp BP Pulse Ox
97.9 F 83 16 159/78 95
10/04/23 03:40 10/04/23 03:40 10/04/23 03:40 10/04/23 03:40 10/04/23 03:40
I&O
10/03/23 10/04/23 10/05/23
06:59 06:59 06:59
Intake Total 240 / 240
Balance 240 / 240
Physical Exam
Physical Exam
Cardiology: Irregular Rate/Rhythm
Pulmonary: Clear
GI: Soft, Non Distended, Non Tender and Normal Bowel Sounds
[2023-10-04 08:37] LABS: % Basophils 0.6 % (0-2); % Eosinophils 0.7 % (0-6); % Immature Granulocytes 0.1 % (0-0.5); % Lymphocytes 21.9 % (20.5-51.1); % Monocytes 8.4 % (1.7-9.3); % Neutrophils 68.3 % (42.2-75.2); Absolute Eosinophils 0.1 10^3/uL (0-0.7); Absolute Lymphocytes 1.5 10^3/uL (1.2-3.4); Absolute Monocytes 0.6 10^3/uL (0.1-0.6); Absolute Neutrophils 4.6 10^3/uL (1.4-6.5); Hematocrit 35.6 % (37.0-47.0); Hemoglobin 11.6 g/dL (12.0-16.0); Mean Corp Hgb Conc. 32.6 g/dL (33.0-37.0); Mean Corpuscular Hgb 27.6 pg (27.0-31.0); Mean Corpuscular Volume 84.6 fL (81.0-99.0); Mean Platelet Volume 10.9 fL (7.4-10.4); Nucleated Red Blood Cells % 0 %; Platelet Count 162 10^3/uL (130-400); Red Blood Cell Count 4.21 10^6/uL (4.20-5.40); Red Cell Dist. Width 14.6 % (11.5-14.5); White Blood Cell Count 6.8 10^3/uL (4.8-10.8)
[2023-10-04 09:55] LABS: Blood Urea Nitrogen 25 mg/dl (7-17); Carbon Dioxide 26 mmol/L (22-30); Chloride 103 mmol/L (98-107); Estimated Creatinine Clearance 49 ml/min; Glucose 119 mg/dl (70-99); Sodium 135 mmol/L (135-145)
[2023-10-04 12:00] VITALS: BP 136/76
--- NOTE | 2023-10-04 12:12 | CM ---
Patient seen at bedside.
IA completed. IMM explained & signed. Placed in chart.
Patient lives alone in a 1 story home.
PLOF: Independent with cane, drives.
DME: shower chair, grab bars, commode.
PCP: Rosa Chirinos
Pharmacy: [facility]
PLAN: Discharge when stable. No anticipated needs.
Daughter to transport home
--- NOTE | 2023-10-04 14:00 | W.DS.TRANS ---
DC Summary - Child Guidance Counselor
-
Discharge Instructions:
Sleep Apnea Risk High
Discharge Diagnosis/Procedures rectal bleeding
Diet Low Residue
Instructions:
Stand-Alone Forms:
Changes to Home Medications: Yes
Discharge Medications:
DC Medications w/original date entered in [employer]
carvedilol 25 mg tablet (Coreg) 25 mg PO BID Heart Failure 12/05/19
evolocumab 140 mg/mL subcutaneous syringe (Repatha Syringe) 140 mg SQ Q2W High cholesterol 12/05/19
levothyroxine 112 mcg tablet 112 mcg PO DAILY Thyroid 12/05/19
Lactobac no.2-Bifidobac no.1-S. thermo 112.5 billion cell capsule (Visbiome) 1 cap PO DAILY Gastrointestinal Issue 10/03/23
acetaminophen 325 mg tablet (Tylenol) 650 mg PO Q4HPRN PRN mild pain 10/03/23
albuterol sulfate 2.5 mg/3 mL (0.083 %) solution for nebulization 2.5 mg inhalation R Q4HPRN PRN sob 10/03/23
albuterol sulfate 90 mcg/actuation aerosol inhaler 2 puff inhalation R Q6HPRN PRN sob 10/03/23
apixaban 5 mg tablet (Eliquis) 5 mg PO BID Blood Clot Prevention/Tx 10/03/23
cyclosporine 0.05 % eye drops in a dropperette (Restasis) 1 drp BOTH EYES Q12H Eye Condition 10/03/23
denosumab 60 mg/mL subcutaneous syringe (Prolia) 60 mg SC [id number] BONE HEALTH 10/03/23
lisinopril 20 mg-hydrochlorothiazide 12.5 mg tablet 1 tab PO DAILY Blood Pressure 10/03/23
Home Medication Changes
Patient instructed to resume Eliquis on 10/08/2023
Pending Results: No
== END 2023-10-04 15:34 | disposition home or self-care (01) | DRG 813 ==
LOC: 4 WEST ACU 14:50
PROVIDERS: ADMITTING PHYSICIAN Internal Medicine; CONSULT PHYSICIAN Internal Medicine Gastroenterology; EMERGENCY PHYSICIAN Emergency Medicine; FAMILY PHYSICIAN Registered Nurse
DX: D68.32 Hemorrhagic disorder due to extrinsic circulating anticoagulants (principal); K57.31 Diverticulosis of large intestine without perforation or abscess with bleeding; C34.32 Malignant neoplasm of lower lobe, left bronchus or lung; I48.20 Chronic atrial fibrillation, unspecified; I11.0 Hypertensive heart disease with heart failure; I50.9 Heart failure, unspecified; E66.9 Obesity, unspecified; Z68.36 Body mass index [BMI] 36.0-36.9, adult; J45.909 Unspecified asthma, uncomplicated; E03.9 Hypothyroidism, unspecified; E11.9 Type 2 diabetes mellitus without complications; T45.515A Adverse effect of anticoagulants, initial encounter; I25.10 Atherosclerotic heart disease of native coronary artery without angina pectoris; E78.00 Pure hypercholesterolemia, unspecified; K21.9 Gastro-esophageal reflux disease without esophagitis; M19.90 Unspecified osteoarthritis, unspecified site; Z79.01 Long term (current) use of anticoagulants; Z79.890 Hormone replacement therapy; Z79.899 Other long term (current) drug therapy; Z90.2 Acquired absence of lung [part of]; Z86.010 Personal history of colon polyps; Z87.891 Personal history of nicotine dependence; Z96.651 Presence of right artificial knee joint; Z88.0 Allergy status to penicillin
CPT/HCPCS: 80048; 80053; 85018; 85025; 85610; 85730; 86850; 86900; 86901; 93005; 94640; 96360; 96361; 99285

== ENCOUNTER → 2023-11-21 08:03 | Outpatient (REF) | payer MEDICARE, OTHER, SELFPAY ==
[2023-11-21 10:13] LABS: % Basophils 0.5 % (0-2); % Eosinophils 1.8 % (0-6); % Immature Granulocytes 0.3 % (0-0.5); % Lymphocytes 21.5 % (20.5-51.1); % Monocytes 8.2 % (1.7-9.3); % Neutrophils 67.7 % (42.2-75.2); Absolute Eosinophils 0.1 10^3/uL (0-0.7); Absolute Lymphocytes 1.7 10^3/uL (1.2-3.4); Absolute Monocytes 0.7 10^3/uL (0.1-0.6); Absolute Neutrophils 5.4 10^3/uL (1.4-6.5); Hematocrit 39.9 % (37.0-47.0); Hemoglobin 12.7 g/dL (12.0-16.0); Mean Corp Hgb Conc. 31.8 g/dL (33.0-37.0); Mean Corpuscular Hgb 27.6 pg (27.0-31.0); Mean Corpuscular Volume 86.7 fL (81.0-99.0); Mean Platelet Volume 11.7 fL (7.4-10.4); Nucleated Red Blood Cells % 0 %; Platelet Count 159 10^3/uL (130-400); Red Cell Dist. Width 15.5 % (11.5-14.5); White Blood Cell Count 7.9 10^3/uL (4.8-10.8)
[2023-11-21 12:12] LABS: ALT (SGPT) 35 U/L (0-35); AST (SGOT) 20 U/L (14-36); Alkaline Phosphatase 46 U/L (38-126); Blood Urea Nitrogen 34 mg/dl (7-17); Calcium 9.4 mg/dl (8.4-10.2); Carbon Dioxide 30 mmol/L (22-30); Chloride 102 mmol/L (98-107); Glucose 91 mg/dl (70-99); HDL Cholesterol 63 mg/dl; LDL Cholesterol, Calculated 43 mg/dl; Potassium 4.4 mmol/L (3.5-5.1); Sodium 141 mmol/L (135-145); Total Cholesterol 124 mg/dl (50-199); Total Protein 6.3 g/dl (6.3-8.2); Triglyceride 93 mg/dl (10-149); Very Low Density Lipoprotein 18 mg/dl (0-30); eGFR 45.48
[2023-11-21 13:13] LABS: Free T4 1.26 ng/dl (0.78-2.19)
== END ==
LOC: HWLAB 08:03
PROVIDERS: ATTENDING PHYSICIAN Surgery; FAMILY PHYSICIAN Registered Nurse; REFERRING PHYSICIAN Internal Medicine Cardiovascular Disease
DX: I10 Essential (primary) hypertension (principal); I25.10 Atherosclerotic heart disease of native coronary artery without angina pectoris; E03.9 Hypothyroidism, unspecified; E78.00 Pure hypercholesterolemia, unspecified; C34.32 Malignant neoplasm of lower lobe, left bronchus or lung; Z90.2 Acquired absence of lung [part of]
CPT/HCPCS: 36415; 80053; 80061; 84439; 84443; 85025

== ENCOUNTER 2024-03-21 06:38 | Day surgery (SDC) | payer MEDICARE, OTHER, SELFPAY | END 2024-03-21 11:26 | disposition home or self-care (01) | LOC: GI 06:38 | PROVIDERS: ATTENDING PHYSICIAN Internal Medicine Gastroenterology | DX: K62.5 Hemorrhage of anus and rectum (principal); K55.21 Angiodysplasia of colon with hemorrhage; K57.30 Diverticulosis of large intestine without perforation or abscess without bleeding; D12.2 Benign neoplasm of ascending colon; D12.4 Benign neoplasm of descending colon | CPT/HCPCS: 45385; 88305 ==

== ENCOUNTER 2024-08-13 10:24 | Inpatient (IN) | payer MEDICARE, OTHER, SELFPAY ==
[2024-08-13 07:11] VITALS: BMI 36.2
[2024-08-13] MEDS: NSS 500 IV (07:17)
--- NOTE | 2024-08-13 07:17 | ED.GENMED ---
History of Present Illness
General
Chief Complaint: Weakness
Source: patient
Exam Limitations: none
Time Seen by Provider: 08/13/24 07:14
History of Present Illness
History of Present Illness:
84yoF with a history of atrial fibrillation, hypertension, hyperlipidemia, hypothyroidism, and prior history of lung cancer presenting via EMS for evaluation of weakness. Patient was feeling normal when she went to bed last night and slept on the
recliner. She woke up in the middle of the night with nausea and vomiting. She was vomiting throughout the night. She reports feeling weak in the legs and was unable to stand. She had an episode of urinary incontinence overnight because she was
unable to ambulate to the bathroom. She also reports a cough that began yesterday. She received IV Zofran prehospital with some improvement. She is otherwise asymptomatic and denies any headache, dizziness, visual changes, fevers, chest pain,
shortness of breath, abdominal pain, diarrhea. No recent travel, suspicious food intake, or sick contacts.
Past History
Past History
ED Past Medical History: Asthma, CAD, GERD, HTN, Hypothyroidism and Other (Arthritis)
ED Past Surgical History: Cholecystectomy and Orthopedic
Social History
Tobacco: Former smoker
Personal:
Living: with family
Family History
Family History: CAD
Phy Exam
General Physical Exam
General Presentation: well appearing and no apparent distress
General Skin: warm and dry
General Habitus: normal
General Mental: alert
ENT Exam
ENT Exam: normocephalic
Eye Exam
Eye Exam: PERRL
Cardiovascular Exam
Cardiovascular Exam: regular rate/rhythm
Pulmonary Exam
Pulmonary Exam: lungs clear, no respiratory distress, no rales, no crackles, no rhonchi and no wheezing
Gastrointestinal Exam
Gastrointestinal Exam: non tender, soft and non distended
Neurological Exam
Neurological Exam: alert and other (4/5 strength with hip flexion bilaterally )
Grant Coma Scale
Eye Opening: Spontaneous
Verbal Response: Oriented
Motor Response: Obeys Commands
GCS Total Score: 15
Skin Exam
Skin Exam: normal color and warm/dry
Psychiatric Exam
Psychiatric Exam: normal mood/affect
Course
Orders/Labs/Results
Orders:
Orders
08/13/24 07:10
Electrocardiogram (*1) Urgent
Reason for Study: Fatigue / Weakness
EKG- Treatment ONCE
08/13/24 07:14
COVID-19 Antigen Urgent
Source: Nasal Swab
0.9% Sodium Chloride 500 ml [Nss] 500 ml IV BOLUS
08/13/24 07:15
Complete Blood Count/With Diff Urgent
Comprehensive Metabolic Panel Urgent
Lipase Urgent
Magnesium Urgent
Troponin I Urgent
Influenza A+B Rapid Molecular Urgent
ALLEN Source: Nasal Swab
Specimen Description:
CR Chest - 2 Views Urgent
Comment:
Reason For Exam: cough
08/13/24 07:22
CT Head W/o Iv Contrast Urgent
Comment:
Reason For Exam: weakness
08/13/24 08:57
EKG- Treatment ONCE
08/13/24 09:06
HydrALAZINE [Apresoline] 10 mg IV NOW STA
08/13/24 09:07
Apixaban [Eliquis] 5 mg PO ONCE ONE
Carvedilol [Coreg] 25 mg PO NOW ONE
08/13/24 10:15
Electrocardiogram (*1) Urgent
Reason for Study: Fatigue / Weakness
Troponin I Urgent
Abnormal Lab Results
08/13/24 08/13/24
07:14 07:15
MPV 10.6 H fL
(7.4-10.4)
Absolute Lymphs (auto) 1.1 L 10^3/uL
(1.2-3.4)
Absolute Monos (auto) 0.9 H 10^3/uL
(0.1-0.6)
Lymphocytes % 16.3 L %
(20.5-51.1)
Monocytes % 12.5 H %
(1.7-9.3)
BUN 27 H mg/dl
(7-17)
Glucose 108 H mg/dl
(70-99)
Troponin I 0.238 H* ng/ml
Lipase 18 L U/L
(23-300)
SARS-CoV-2 Antigen Positive A
(Negative)
08/13/24 07:15
08/13/24 07:15
Vital Signs
Initial and Last Documented VS:
Initial Vital Signs
Temp Pulse Resp Pulse Ox
98.5 F 68 18 96
08/13/24 07:11 08/13/24 07:11 08/13/24 07:11 08/13/24 07:11
Last Documented Vital Signs
Temp Pulse Resp BP Pulse Ox
98.5 F 79 18 185/138 95
08/13/24 07:11 08/13/24 08:45 08/13/24 07:15 08/13/24 08:26 08/13/24 08:30
MDM/Problems Addressed
Differential Diagnosis Includes:
84yoF presenting after vomiting all night. Unable to stand today due to legs feeling weak. Also started with a cough yesterday. No CP/SOB. No headache/dizziness. She is hypertensive on arrival with otherwise stable vitals. 4/5 strength with hip
flexion bilaterally. Differential diagnosis includes but is not limited to: gastroenteritis, viral illness, dehydration, less likely neurologic etiology
Initial ED plan: Check abdominal labs, magnesium, troponin/EKG, COVID/flu swab, CXR, and CT head. IV fluid bolus.
*Pulse Oximetry
SaO2: 95
Oxygen Mode of Delivery: Room air
Patient hypoxic: no (96%)
*EKG
Interpreted by ED Provider?: Yes
EKG Intrepretation Date: 08/13/24
Heart Rate: 70
Rate: normal
Rhythm: sinus
[place]: normal axis
Interval: normal interval
QRS Pattern: normal QRS
Ischemia: no ischemia
*Critical Care Note
Total Time (30-74mins, 75-104mins- exclusive of procedures): Not Applicable
Update Note
Update Note:
Patient tested positive for COVID. Patient doing well on room air. Troponin elevated at 0.238. EKG shows NSR without ischemic changes. She continues to deny chest pain/shortness of breath on reassessment. CT head negative for acute findings. Patient
admitted for further evaluation and management.
ED Attending Note
-
Portions of this chart may have been created with voice recognition software.� Occasional wrong word or��sound alike� substitutions may have occurred due to the inherent limitations of voice recognition software.
Discharge Plan
Departure
Patient Disposition: Admit
Date of Disposition: 08/13/24
Time of Disposition: 08:49
Presentation/result/management discussed w/ accepting MD/DO: Hospitalist
Discharge Problem:
Generalized weakness, Nausea and vomiting, COVID-19, Elevated troponin
Prescriptions:
No Action
levothyroxine 112 MCG tablet
112 mcg PO DAILY
carvedilol [Coreg] 25 MG tablet
25 mg PO BID
Repatha Syringe 140 MG/ML syringe
140 mg SQ Q2W
lisinopril-hydrochlorothiazide 20-12.5 mg Tablet
1 tab PO DAILY
cyclosporine [Restasis] 0.05 % Dropperette
1 drp BOTH EYES Q12H
Visbiome 112.5 billion cell Capsule
1 cap PO DAILY
Prolia 60 mg/mL Syringe
60 mg SC [id number]
famotidine [Pepcid] 20 mg Tablet
20 mg PO DAILY
docusate sodium [Colace] 100 mg Capsule
200 mg PO DAILY
fluticasone propion-salmeterol [Wixela Inhub] 100-50 mcg/dose Blister With Device
1 inh INHALATION R BID
Eliquis 5 mg Tablet
5 mg PO BID
Referrals:
Viet Carney DO [Family Provider, Family Practice]
Interventions
Interventions:
*Risk Screen - Suicide Last Done: 08/13/24 07:11
*General Assessment Last Done: 08/13/24 07:11
*Neglect/Abuse Screening Last Done: 08/13/24 07:11
*ED- Fall Risk Assessment Last Done: 08/13/24 07:11
*ED COVID-19 Vaccine History Last Done: 08/13/24 07:11
ED- Cardiac Assessment Last Done: 08/13/24 07:11
ED- Neurological Assessment Last Done: 08/13/24 07:11
ED- Pulmonary Assessment Last Done: 08/13/24 07:11
Discharge Date and Time
Print Language: MALTESE
[2024-08-13 07:31] LABS: % Basophils 0.7 % (0-2); % Eosinophils 0.6 % (0-6); % Immature Granulocytes 0.1 % (0-0.5); % Lymphocytes 16.3 % (20.5-51.1); % Monocytes 12.5 % (1.7-9.3); % Neutrophils 69.8 % (42.2-75.2); Absolute Basophils 0.1 10^3/uL (0-0.2); Absolute Lymphocytes 1.1 10^3/uL (1.2-3.4); Absolute Monocytes 0.9 10^3/uL (0.1-0.6); Absolute Neutrophils 4.8 10^3/uL (1.4-6.5); Hematocrit 39.1 % (37.0-47.0); Hemoglobin 13.3 g/dL (12.0-16.0); Mean Corpuscular Hgb 30.2 pg (27.0-31.0); Mean Corpuscular Volume 88.9 fL (81.0-99.0); Mean Platelet Volume 10.6 fL (7.4-10.4); Nucleated Red Blood Cells % 0 %; Platelet Count 171 10^3/uL (130-400); Red Cell Dist. Width 12.8 % (11.5-14.5); White Blood Cell Count 6.9 10^3/uL (4.8-10.8)
[2024-08-13 07:37] LABS: COVID-19 Antigen Positive (Negative)
[2024-08-13 08:03] LABS: ALT (SGPT) 24 U/L (0-35); AST (SGOT) 24 U/L (14-36); Alkaline Phosphatase 45 U/L (38-126); Blood Urea Nitrogen 27 mg/dl (7-17); Calcium 9.1 mg/dl (8.4-10.2); Carbon Dioxide 26 mmol/L (22-30); Chloride 105 mmol/L (98-107); Estimated Creatinine Clearance 54 ml/min; Glucose 108 mg/dl (70-99); Lipase 18 U/L (23-300); Magnesium 1.9 mg/dl (1.6-2.3); Potassium 4.1 mmol/L (3.5-5.1); Sodium 137 mmol/L (135-145); Total Bilirubin 0.8 mg/dl (0.2-1.3); Total Protein 6.6 g/dl (6.3-8.2); eGFR > 60.00
[2024-08-13 08:15] LABS: Troponin I 0.238 ng/ml
[2024-08-13 08:26] VITALS: BP 185/138
[2024-08-13 09:00] VITALS: BP 181/153
[2024-08-13] MEDS: COREG 25 MG PO ×2 (09:21→21:22)
[2024-08-13] MEDS: ELIQUIS 5 MG PO ×2 (09:22→21:22)
[2024-08-13] MEDS: APRESOLINE 10 MG IV (09:22)
[2024-08-13 10:00] VITALS: BP 160/75
[2024-08-13] MEDS: ULTRAM 25 MG PO (10:33)
[2024-08-13 11:16] LABS: Troponin I 0.363 ng/ml
[2024-08-13 11:49] VITALS: BMI 36.2
[2024-08-13] MEDS: ADVAIR HFA 45/21 MCG INHALER INH (11:56)
[2024-08-13] MEDS: PEPCID 20 MG PO (12:00)
[2024-08-13] MEDS: SYNTHROID 112 MCG PO (12:00)
[2024-08-13] MEDS: VISBIOME 1 CAP PO (12:00)
[2024-08-13] MEDS: ULTRAM 50 MG PO ×2 (12:00→22:32)
[2024-08-13] MEDS: ZOFRAN 4 MG IV (12:01)
[2024-08-13] MEDS: DECADRON 6 MG IV (12:01)
[2024-08-13] MEDS: RESTASIS 0.05% OPHTHALMIC EMULSION BOTH EYES (12:02)
--- NOTE | 2024-08-13 12:30 | PTCARENOTE ---
Patient admitted to . Daughter at bedside. Patient oriented to floor. Call granda within reach. Patient c/o of nausea and back pain/ body aches. PRN zofran and tramadol administered per prn orders.
--- NOTE | 2024-08-13 13:11 | HPS.HSE ---
Family Physician
-
Family Physician: Viet Carney
Chief Complaint
-
Nausea/vomiting/cough
History of Present Illness
Patient is a 84-year-old female with past medical history of history of left lung cancer status post lobectomy, coronary disease, A-fib on Eliquis, hypertension, hyperlipidemia, hypothyroidism, GERD, osteoporosis came to ER with new onset of nausea
vomiting followed by new cough. Symptoms were rapid onset within 48 hours which started initially with nausea and vomiting. Patient developed new cough as well yesterday. No reported chest discomfort/abdominal pain/fever. In ER patient was
tested positive for COVID and being admitted for further monitoring.
Medical History
Past Medical History
Past Medical History: Reports Other
Additional Past Medical History:
history of left lung cancer status post lobectomy, coronary disease, A-fib on Eliquis, hypertension, hyperlipidemia, hypothyroidism, GERD, osteoporosis
Past Surgical History: Reports Other
Social History
Tobacco: Former Smoker
Alcohol: None
Drug: None
Living: With Family
Family History
Family History: Not pertinent
Allergies / Home Medications
Allergies reflects when Allergies were last updated in [employer].
Home Medications with original date entered in [employer]
Allergy/Medication List:
Allergies
Allergy/AdvReac Type Severity Reaction Status Date / Time
amoxicillin Allergy 'YEAST Verified 10/03/23 09:49
INFECTION'
adhesive AdvReac Rash/bliste Verified 10/03/23 09:49
rs
oxycodone AdvReac Itching Verified 10/03/23 09:49
Home Medications
carvedilol 25 mg tablet (Coreg) 25 mg PO BID Heart Failure 12/05/19
evolocumab 140 mg/mL subcutaneous syringe (Repatha Syringe) 140 mg SQ Q2W High cholesterol 12/05/19
levothyroxine 112 mcg tablet 112 mcg PO DAILY Thyroid 12/05/19
Lactobac no.2-Bifidobac no.1-S. thermo 112.5 billion cell capsule (Visbiome) 1 cap PO DAILY Gastrointestinal Issue 10/03/23
cyclosporine 0.05 % eye drops in a dropperette (Restasis) 1 drp BOTH EYES Q12H Eye Condition 10/03/23
denosumab 60 mg/mL subcutaneous syringe (Prolia) 60 mg SC [id number] BONE HEALTH 10/03/23
lisinopril 20 mg-hydrochlorothiazide 12.5 mg tablet 1 tab PO DAILY Blood Pressure 10/03/23
apixaban 5 mg tablet (Eliquis) 5 mg PO BID Blood Clot Prevention/Tx 08/13/24
docusate sodium 100 mg capsule (Colace) 200 mg PO DAILY Constipation 08/13/24
famotidine 20 mg tablet (Pepcid) 20 mg PO DAILY Gastrointestinal Issue 08/13/24
fluticasone 100 mcg-salmeterol 50 mcg/dose blistr powdr for inhalation (Wixela Inhub) 1 inh inhalation R BID Allergies 08/13/24
Review of Systems
-
A 12 point ROS was completed and negative except as noted: Yes
Physical Exam
Vital Signs
Vital Signs
Temp Pulse Resp BP Pulse Ox
98.5 F 75 18 160/75 93
08/13/24 07:11 08/13/24 10:45 08/13/24 07:15 08/13/24 10:00 08/13/24 10:45
Physical Exam
General: No Apparent Distress
HEENT: Atraumatic
Respiratory: Clear
Cardiac: S1/S2 and Regular Rhythm; No Murmur or Rub
GI: Soft, Non Tender, Non Distended and Normal Bowel Sounds; No Organomegaly
Rectal: Deferred by Provider
Musculoskeletal: No Clubbing, No Cyanosis and No Edema
Skin: No Rash
Neuro: Nonfocal/grossly intact
Laboratory Results
-
08/13/24 07:15
08/13/24 07:15
Laboratory Results
Total Bilirubin 0.8 mg/dl (0.2-1.3) 08/13/24 07:15
AST 24 U/L (14-36) 08/13/24 07:15
ALT 24 U/L (0-35) 08/13/24 07:15
Alkaline Phosphatase 45 U/L (38-126) 08/13/24 07:15
Troponin I 0.363 ng/ml H* D 08/13/24 10:18
Lipase 18 U/L (23-300) L 08/13/24 07:15
Impression/Plan
-
1. COVID-19 viral infection
- Chest x-ray reviewed and have some chronic left lower lobe haziness from previous history of lobectomy
- Not requiring any oxygen
- Patient having preliminary GI symptoms
- Maintain on empiric IV dexamethasone 6 daily, usually not recommended for nonhypoxic patient. Will discontinue further after symptom improved
- Will check interaction and will likely provide a short course of Paxlovid at discharge as well
2. Nausea/vomiting
- From COVID viral illness
- Continue regular diet with symptomatic care/prn zofran
3. Essential hypertension
Hypertensive urgency
- Patient systolic blood pressure in 180s in the ER
- Resume back on Coreg. hold HCTZ/lisinopril for now
- prn hydralazine ordered for SBP > 16-
4. Paroxysmal atrial fibrillation
- Maintain on home dose of Coreg/Eliquis
5. Hypothyroidism
- Continue levothyroxine
DVT PPX - eliquis
Full code
Total time spent : 77 mins
I personally saw and examined the patient.
I have reviewed all diagnostic interpretations and treatment plans as written.
Time includes patient management by me, time spent at the patients bedside, time to review lab and imaging results, discussing patient care, documentation in the medical record, and time spent with the family or caregiver and discussing care plan
with RN/Consultants.
[2024-08-13 15:06] VITALS: BP 148/66
[2024-08-13 16:53] LABS: Troponin I 0.534 ng/ml
[2024-08-13] MEDS: ADVAIR HFA 45/21 MCG INHALER 2 PUFF INH (20:23)
[2024-08-13 20:46] LABS: Troponin I 0.462 ng/ml
[2024-08-13] MEDS: RESTASIS 0.05% OPHTHALMIC EMULSION 1 DROPS BOTH EYES (22:33)
[2024-08-13 23:05] VITALS: BP 123/52
[2024-08-14] MEDS: SYNTHROID 112 MCG PO (05:40)
[2024-08-14] MEDS: ULTRAM 25 MG PO (05:53)
[2024-08-14 06:00] VITALS: BMI 34.6
[2024-08-14 07:24] VITALS: BP 142/68
[2024-08-14 07:25] LABS: % Basophils 0.2 % (0-2); % Immature Granulocytes 0.2 % (0-0.5); % Lymphocytes 16.7 % (20.5-51.1); % Monocytes 10.3 % (1.7-9.3); % Neutrophils 72.6 % (42.2-75.2); Absolute Monocytes 0.6 10^3/uL (0.1-0.6); Absolute Neutrophils 4.2 10^3/uL (1.4-6.5); Hematocrit 36.6 % (37.0-47.0); Hemoglobin 12.5 g/dL (12.0-16.0); Mean Corp Hgb Conc. 34.2 g/dL (33.0-37.0); Mean Corpuscular Hgb 30.4 pg (27.0-31.0); Mean Corpuscular Volume 89.1 fL (81.0-99.0); Mean Platelet Volume 10.5 fL (7.4-10.4); Nucleated Red Blood Cells % 0 %; Platelet Count 160 10^3/uL (130-400); Red Blood Cell Count 4.11 10^6/uL (4.20-5.40); Red Cell Dist. Width 12.9 % (11.5-14.5); White Blood Cell Count 5.8 10^3/uL (4.8-10.8)
[2024-08-14] MEDS: ADVAIR HFA 45/21 MCG INHALER 2 PUFF INH ×2 (07:37→19:23)
[2024-08-14 08:10] LABS: Blood Urea Nitrogen 25 mg/dl (7-17); Calcium 8.2 mg/dl (8.4-10.2); Carbon Dioxide 24 mmol/L (22-30); Chloride 105 mmol/L (98-107); Estimated Creatinine Clearance 59 ml/min; Glucose 105 mg/dl (70-99); Sodium 135 mmol/L (135-145); eGFR > 60.00
[2024-08-14] MEDS: ELIQUIS 5 MG PO ×2 (08:15→19:46)
[2024-08-14] MEDS: PEPCID 20 MG PO (08:16)
[2024-08-14] MEDS: COLACE 200 MG PO (08:16)
[2024-08-14] MEDS: COREG 25 MG PO ×2 (08:16→19:46)
[2024-08-14] MEDS: DECADRON 6 MG IV (08:16)
[2024-08-14] MEDS: VISBIOME 1 CAP PO (08:16)
--- NOTE | 2024-08-14 12:53 | PN.CDI ---
CDI
- -
CDI:
Physician Documentation Request
Admit Date: 08/13/24 10:24
Dear Doctor Sam,
Please review the following and provide your response in the progress notes.
Clinical Indicators:
Pt admitted with COVID-19 infection
Documented per ED, ' Troponin elevated at 0.238. EKG shows NSR without ischemic changes. ..Elevated troponin...'
08/13/24 08/13/24 08/13/24
07:15 10:18 16:20
Troponin I 0.238 H* 0.363 H* D 0.534 H* D
08/13/24
20:09
Troponin I 0.462 H*
Please provide a diagnosis for the above elevated troponin:
Non-ischemic myocardial injury
Elevated troponin only
Other (please specify)
Use of terms such as suspected, likely, concern for, or probable (associated with a specific diagnosis that is being evaluated, monitored, or treated as if it exists) are acceptable and can be coded in the inpatient setting, when documented at the
time of discharge.
Thank you,
Adelina Middleton RN
CDI Specialist
[facility]
Please use your independent medical judgment in providing your response.
[2024-08-14] MEDS: RESTASIS 0.05% OPHTHALMIC EMULSION BOTH EYES (13:13)
--- NOTE | 2024-08-14 13:38 | W.PN.HOSP.TC ---
Today's Communication/Plan
-
PT evaluation
discharge planning
Assessment / Plan
Assessment / Plan
1. COVID-19 viral infection
- Chest x-ray reviewed and have some chronic left lower lobe haziness from previous history of lobectomy
- Not requiring any oxygen
- Patient having preliminary GI symptoms
- Maintain on empiric IV dexamethasone 6 daily, usually not recommended for non-hypoxic patient. Will discontinue further after symptom improved
- Will check interaction and will likely provide a course of Paxlovid at discharge as well
2. Nausea/vomiting
- From COVID viral illness
- Continue regular diet with symptomatic care/prn zofran
3. Essential hypertension
Hypertensive urgency - Improved
- Patient systolic blood pressure in 180s in the ER
- Resumed back on Coreg. hold HCTZ/lisinopril for now
- prn hydralazine ordered for SBP > 160
4. Paroxysmal atrial fibrillation
- Maintain on home dose of Coreg/Eliquis
5. Hypothyroidism
- Continue levothyroxine
DVT PPX - eliquis
Full code
Anticipated Discharge: Within 24 hours
Subjective/Interval History
-
Date of Service: August 14, 2024
Denies a having any abdominal pain/vomiting
remains off o2
Objective Data
-
Labs:
Laboratory Results
08/14/24
07:06
WBC 5.8
Hgb 12.5
Hct 36.6 L
Plt Count 160
Sodium 135
Potassium 4.0
Chloride 105
Carbon Dioxide 24
BUN 25 H
Creatinine 0.8
Glucose 105 H
Calcium 8.2 L
Vital Signs:
Vital Signs
Temp Pulse Resp BP Pulse Ox
97.9 F 69 16 142/68 96
08/14/24 07:24 08/14/24 08:16 08/14/24 07:42 08/14/24 08:16 08/14/24 07:42
I&O
08/13/24 08/14/24 08/15/24
06:59 06:59 06:59
Intake Total 240 / 240
Balance 240 / 240
Review of Systems
-
Respiratory: Reports No Symptoms
Cardiac: Reports No Symptoms
Abdomen/GI: Reports No Symptoms
Physical Exam
-
General: Comfortable
HEENT: Negative Oxygen
Respiratory: Clear to Auscultation
Cardiac: Regular Rhythm and S1/S2; Negative Murmur or Rub
Musculoskeletal: No Edema
Neuro: Awake, Alert, Oriented, No Motor Deficits and Nonfocal/Grossly Intact
Psych: Calm
--- NOTE | 2024-08-14 14:38 | CM ---
CM following re: discharge planning.
Reviewed pt's chart, spoke to pt's daughter Lolis over the phone.
Pt is an 84 year old female, admitted with primary dx of Weakness, COVID+.
Per daughter, pt lives alone 1SH, no steps to enter, ambulates with a cane, has BSC and grab bars. Pt's daughter stated she is the only child and she helps her mother as needed. Pt's daughter she spoke to her mother who admitted she is very weak
and she might need a short term rehab before she returns back home. Per daughter, pt was at [facility] and she will not return back there. A list of SNFs provided to pt and her daughter. Following SNFs preferred: [facility], [facility], [facility] and [facility]. Pt's daughter stated she will tour those SNFs to make a final decision.
PT and OT will evaluate the pt to determine a level of care at discharge. CM will make a referral to above SNFs after PT/OT evaluations and recommendations.
PCP: Viet Carney
Pharmacy: [facility]
D/C plan: probably preferred SNF. Awaiting for PT/OT evaluations and recommendations.
CM will follow with discharge plan updates as hospitalization progresses
[2024-08-14 15:59] VITALS: BP 130/74
[2024-08-14 16:27] VITALS: BP 130/74; PULSE 65
[2024-08-14 23:19] VITALS: BP 149/71
[2024-08-15] MEDS: RESTASIS 0.05% OPHTHALMIC EMULSION BOTH EYES (01:06)
[2024-08-15] MEDS: TYLENOL 650 MG PO ×2 (02:30→09:01)
[2024-08-15] MEDS: SYNTHROID 112 MCG PO (05:44)
[2024-08-15 06:00] VITALS: BMI 34.7
[2024-08-15] MEDS: ADVAIR HFA 45/21 MCG INHALER 2 PUFF INH (07:34)
[2024-08-15 07:35] VITALS: BP 161/68
[2024-08-15] MEDS: ELIQUIS 5 MG PO (07:45)
[2024-08-15] MEDS: PEPCID 20 MG PO (07:45)
[2024-08-15] MEDS: COLACE 200 MG PO (07:45)
[2024-08-15] MEDS: VISBIOME 1 CAP PO (07:45)
[2024-08-15 07:46] LABS: % Basophils 0.1 % (0-2); % Immature Granulocytes 0.3 % (0-0.5); % Lymphocytes 13.4 % (20.5-51.1); % Monocytes 6.9 % (1.7-9.3); % Neutrophils 79.3 % (42.2-75.2); Absolute Lymphocytes 1.2 10^3/uL (1.2-3.4); Absolute Monocytes 0.6 10^3/uL (0.1-0.6); Absolute Neutrophils 7.1 10^3/uL (1.4-6.5); Hemoglobin 12.6 g/dL (12.0-16.0); Mean Corp Hgb Conc. 33.2 g/dL (33.0-37.0); Mean Corpuscular Hgb 29.6 pg (27.0-31.0); Mean Corpuscular Volume 89.4 fL (81.0-99.0); Mean Platelet Volume 10.5 fL (7.4-10.4); Nucleated Red Blood Cells % 0 %; Platelet Count 176 10^3/uL (130-400); Red Blood Cell Count 4.25 10^6/uL (4.20-5.40); Red Cell Dist. Width 13.1 % (11.5-14.5)
[2024-08-15] MEDS: DECADRON 6 MG IV (07:46)
[2024-08-15] MEDS: COREG PO (08:02)
[2024-08-15 08:11] LABS: Blood Urea Nitrogen 35 mg/dl (7-17); Calcium 8.9 mg/dl (8.4-10.2); Carbon Dioxide 27 mmol/L (22-30); Chloride 105 mmol/L (98-107); Estimated Creatinine Clearance 53 ml/min; Glucose 104 mg/dl (70-99); Potassium 4.3 mmol/L (3.5-5.1); Sodium 136 mmol/L (135-145); eGFR > 60.00
[2024-08-15] MEDS: ZESTRIL 20 MG PO (08:59)
[2024-08-15] MEDS: ORETIC 12.5 MG PO (09:00)
--- NOTE | 2024-08-15 12:20 | W.PN.HOSP.TC ---
Addendum entered and electronically signed by Felix Vargas MD 08/17/24 13:53:
Trop elevation -
Non-ischemic myocardial injury related
Original Note:
Today's Communication/Plan
-
d/c home
Assessment / Plan
Assessment / Plan
1. COVID-19 viral infection
- Chest x-ray reviewed and have some chronic left lower lobe haziness from previous history of lobectomy
- Not requiring any oxygen
- Patient having preliminary GI symptoms
- Stop further IV dexamethasone at discharge. No indication for Paxlovid as patient is completely symptomatic at this stage
2. Nausea/vomiting - resolved
- From COVID viral illness
- Continue regular diet with symptomatic care/prn zofran
3. Essential hypertension
Hypertensive urgency - Improved
- Patient systolic blood pressure in 180s in the ER
- Resume back hydrochlorothiazide/lisinopril home dose. Coreg dose has been adjusted to be held for heart rate less than 65.
- prn hydralazine ordered for SBP > 160
4. Paroxysmal atrial fibrillation
- Maintain on home dose of Coreg/Eliquis
5. Hypothyroidism
- Continue levothyroxine
6. Generalized weakness
- Patient did well with physical therapy and able to get around. Appropriate for home health physical therapy
DVT PPX - eliquis
Full code
More than 30 minutes spent in discharge including
Final examination of the patient
Summarizing hospital stay
Instructions for continuing care to all relevant caregivers
Preparation of discharge records, prescriptions, and referral forms
Total time spent (in minutes): 39 mins
Anticipated Discharge: Today
Subjective/Interval History
-
Date of Service: August 15, 2024
Denies of having any abdominal issues
No dyspnea/shortness of breath
Remains afebrile
Objective Data
-
Labs:
Laboratory Results
08/15/24
07:29
WBC 9.0
Hgb 12.6
Hct 38.0
Plt Count 176
Sodium 136
Potassium 4.3
Chloride 105
Carbon Dioxide 27
BUN 35 H
Creatinine 0.9
Glucose 104 H
Calcium 8.9
Vital Signs:
Vital Signs
Temp Pulse Resp BP Pulse Ox
97.8 F 53 16 161/68 98
08/15/24 07:35 08/15/24 08:59 08/15/24 07:37 08/15/24 08:59 08/15/24 08:00
I&O
08/14/24 08/15/24 08/16/24
06:59 06:59 06:59
Intake Total 240 / 240 1340 / 1340
Balance 240 / 240 1340 / 1340
Review of Systems
-
Respiratory: Reports No Symptoms
Cardiac: Reports No Symptoms
Abdomen/GI: Reports No Symptoms
Physical Exam
-
General: Comfortable
HEENT: Negative Oxygen
Respiratory: Clear to Auscultation
Cardiac: Regular Rhythm and S1/S2; Negative Murmur or Rub
Musculoskeletal: No Edema
Neuro: Awake, Alert, Oriented, No Motor Deficits and Nonfocal/Grossly Intact
Psych: Calm
[2024-08-15 12:22] VITALS: BP 125/86
--- NOTE | 2024-08-15 12:30 | CM ---
CM following re: discharge planning.
Discharge order noted.
Pt is aware, expressed her agreement with discharge and pt stated her daughter will transport home. IMM reviewed, placed on chart, pt has a copy.
PT and OT evaluations noted - home PT/OT recommended. Pt is aware, expressed her agreement. VN choices provided, pt preferred [facility]. A referral to [facility] made.
Please fax discharge instructions to [facility] at [phone]
D/C plan: home with [facility] and family support. daughter to transport.
[2024-08-15] MEDS: RESTASIS 0.05% OPHTHALMIC EMULSION 1 DROPS BOTH EYES (13:21)
--- NOTE | 2024-08-15 13:27 | VNURNOTE ---
Home Health Liaison spoke with patient at bedside to discuss [facility] nurse/therapy, visits, schedule and homebound status. Patient is agreeable and understands that visits at home will be 2-3 x per week to assess and teach medical management.
Patient is aware that [facility] will contact them for start of care in 1-2 days after discharge from .
[facility] referral completed in [facility].
--- NOTE | 2024-08-15 17:27 | W.DCSUMMARY ---
Discharge Summary
Discharge Data
Date of Admission: 08/13/24
Date of Discharge: 08/15/24
-
Pending Results: No
Hospital Course
Discharging Physician : Dr Felix Vargas
Disposition : Home
Primary care physician : Dr Viet Carney
Principal Discharge diagnosis :
COVID-19 viral infection
Nausea/vomiting
Chronic Discharge diagnosis :
History of left lung cancer status post lobectomy
Coronary artery disease
History of atrial fibrillation on Eliquis
Essential hypertension
Hyperlipidemia
Hypothyroidism
Gastroesophageal reflux disease
Osteoporosis
Hospital Course :
Patient is a 84-year-old female with Hypotension past medical history came to ER with new onset of nausea vomiting and some cough. Symptoms were rapid onset within 48 hours. Patient did not have any diarrhea and was not febrile. In ER patient was
tested positive for COVID 19 viral infection. Chest x-ray was relatively clear except no known left lobar haziness from previous lobectomy. Patient was admitted to observation. Patient did not have any major pulmonary symptoms although was
maintained on some IV dexamethasone in light of cough and concern of developing changes. Fortunately patient did not have any further pulmonary issues. Patient nausea vomiting was felt to be COVID-related gastroenteritis and improved as well
rapidly without further intervention. Patient was provided symptomatic care. Patient was complaining some generalized weakness and was evaluated by physical therapy and was deemed appropriate for home-based physical therapy. Patient was
discharged to home with plan to follow-up with primary care physician in office in 7 days .
Important imaging findings :
None
Procedure findings :
None
Discharge Plan
-
Patient Disposition: Home with Home Care
Discharge Diagnosis/Procedures: COVID 19 viral infection, Viral gastro-enteritis, weakness
Condition: Fair
Diet: 2 Gram Sodium
Activity: As tolerated
Driving Restrictions: No driving
Bathing Restrictions: OK to Shower
Activity Restrictions/Additional Instructions:
Maintain isolation for 7 more days
Referrals:
Viet Carney DO [Family Provider, [facility]] - in one week
Prescriptions:
Continued
levothyroxine 112 MCG tablet
112 mcg PO DAILY
Repatha Syringe 140 MG/ML syringe
140 mg SQ Q2W
lisinopril-hydrochlorothiazide 20-12.5 mg Tablet
1 tab PO DAILY
cyclosporine [Restasis] 0.05 % Dropperette
1 drp BOTH EYES Q12H
Visbiome 112.5 billion cell Capsule
1 cap PO DAILY
Prolia 60 mg/mL Syringe
60 mg SC [id number]
famotidine [Pepcid] 20 mg Tablet
20 mg PO DAILY
docusate sodium [Colace] 100 mg Capsule
200 mg PO DAILY
fluticasone propion-salmeterol [Wixela Inhub] 100-50 mcg/dose Blister With Device
1 inh INHALATION R BID
Eliquis 5 mg Tablet
5 mg PO BID
carvedilol [Coreg] 25 MG tablet
25 mg PO BID Qty: 0 0RF
Rx Instructions:
CHECK HEART RATE BEFORE EACH DOSE AND HOLD DOSE IF HEART RATE < 65
Discharge Orders:
Discharge Patient (As Directed); Ordered 08/15/24
Ordered By: Felix Vargas
Discharge Date and Time
Discharge Date/Time: 08/15/24 13:55
Print Language: DIVEHI
== END 2024-08-15 13:55 | disposition home health service (06) | DRG 178 ==
LOC: 2 NORTH 10:24
PROVIDERS: Physician Assistant; ADMITTING PHYSICIAN Hospitalist; EMERGENCY PHYSICIAN Emergency Medicine; FAMILY PHYSICIAN Family Medicine
DX: U07.1 COVID-19 (principal); I5A Non-ischemic myocardial injury (non-traumatic); Z85.118 Personal history of other malignant neoplasm of bronchus and lung; I25.10 Atherosclerotic heart disease of native coronary artery without angina pectoris; I48.0 Paroxysmal atrial fibrillation; Z79.01 Long term (current) use of anticoagulants; I10 Essential (primary) hypertension; E78.5 Hyperlipidemia, unspecified; E03.9 Hypothyroidism, unspecified; K21.9 Gastro-esophageal reflux disease without esophagitis; M81.0 Age-related osteoporosis without current pathological fracture; Z87.891 Personal history of nicotine dependence; Z88.0 Allergy status to penicillin; Z79.890 Hormone replacement therapy; I16.0 Hypertensive urgency; J45.909 Unspecified asthma, uncomplicated; M19.90 Unspecified osteoarthritis, unspecified site; R32 Unspecified urinary incontinence
CPT/HCPCS: 70450; 71046; 80048; 80053; 83690; 83735; 84484; 85025; 87502; 87811; 93005; 94640; 96360; 97161; 99285